=== PATIENT | male | born 1960 | race African-American/Black ===

== ENCOUNTER 2016-06-07 08:25 | Emergency (ER) | payer OTHER | END 2016-06-07 09:13 | disposition home or self-care (01) | LOC: SED 08:25 | DX: S51.812A Laceration without foreign body of left forearm, initial encounter (principal); Z23 Encounter for immunization; F17.210 Nicotine dependence, cigarettes, uncomplicated; W26.8XXA Contact with other sharp object(s), not elsewhere classified, initial encounter; Y92.69 Other specified industrial and construction area as the place of occurrence of the external cause; Y99.0 Civilian activity done for income or pay | CPT/HCPCS: 12032; 90471; 90715; 99283 ==